=== PATIENT | female | born 1980 | race Caucasian/White ===

== ENCOUNTER → 2018-05-14 | Outpatient (CLI) | payer OTHER ==
--- NOTE | 2018-05-14 17:14 | PCVCIMAG ---
APPROVED REPORT Study performed: 05/14/2018 15:24:04 EXAM: Comprehensive 2D, Doppler, and color-flow Echocardiogram Patient Location: Echo lab Status: routine BSA: 1.60 HR: 76 bpmBP: 110/60 mmHg Rhythm: LBBB Other Information Study Quality: Adequate Indications Left Bundle Branch Block 2D Dimensions IVSd: 5.51 (7-11mm)LVOT Diam: 17.34 (18-24mm) LVDd: 52.28 mm PWd: 4.72 (7-11mm)Ascending Ao: 20.98 (22-36mm) LVDs: 34.42 (25-40mm) Left Atrium: 32.39 (27-40mm) Aortic Root: 17.92 mm LV Single Plane 4CH: 56.94 % LV Single Plane 2CH: 60.36 % Biplane EF: 58.9 % Volumes Left Atrial Volume (Systole) Single Plane 4CH: 40.49 mLSingle Plane 2CH: 48.39 mL LA ESV Index: 29.00 mL/m2 Aortic Valve AoV Peak Sin.: 1.50 m/s AO Peak Gr.: 9.00 mmHgLVOT Max P.33 mmHg LVOT Max V: 1.15 m/s ANGELICA Vmax: 1.82 cm2 Mitral Valve E/A Ratio: 2.2 MV Decel. Time: 163.33 ms MV E Max Sin.: 1.05 m/s MV A Sin.: 0.48 m/s Tricuspid Valve TR Peak Sin.: 1.79 m/s TR Peak Gr.: 12.86 mmHg Left Ventricle The left ventricle is normal size. Discordant septal motion due to Left Bundle Branch Block. There is normal left ventricular wall thickness. Left ventricular systolic function is normal. The left ventricular ejection fraction is within the normal range. LVEF is 50%. The left ventricular diastolic function is normal. Right Ventricle The right ventricle is normal size. The right ventricular systolic function is normal. Atria The left atrium size is normal. The right atrium size is normal. Aortic Valve The aortic valve is normal in structure. No aortic regurgitation is present. There is no aortic valvular stenosis. Mitral Valve The mitral valve is normal in structure. There is no mitral valve regurgitation noted. No evidence of mitral valve stenosis. Tricuspid Valve The tricuspid valve is normal in structure. Trace tricuspid regurgitation. Pulmonic Valve The pulmonary valve is normal in structure. There is no pulmonic valvular regurgitation. Great Vessels The aortic root is normal in size. IVC is normal in size and collapses >50% with inspiration. Pericardium There is no pericardial effusion. <Conclusion> The left ventricle is normal size. Discordant septal motion due to Left Bundle Branch Block. LVEF is 50%. The left ventricular diastolic function is normal. The right ventricle is normal size. The left atrium size is normal. The aortic valve is normal in structure. There is no mitral valve regurgitation noted. Trace tricuspid regurgitation. The aortic root is normal in size. There is no pericardial effusion.
== END | disposition home or self-care (01) ==
LOC: PCVCIMAG 15:40
PROVIDERS: ATTEND Family Medicine
DX: I44.7 Left bundle-branch block, unspecified (principal)
CPT/HCPCS: 93306

== ENCOUNTER → 2018-05-23 | Outpatient (CLI) | payer OTHER ==
[~2018-05-23] MED LIST: REGADENOSON 0.4 MG/5 ML DISP.SYRIN. IV ONE
--- NOTE | 2018-05-23 19:15 | PCVCIMAG ---
APPROVED REPORT Imaging Protocol: Rest Tc-99m/Stress Tc-99m 1 day Study performed: 05/23/2018 14:01:53 Indication: Chest pain, Abnormal EKG, Abn Echo, New Onset LBBB Patient Location: Out-Patient Stress Nurse: Maddie Cardona RN RI Tech:Jessica Harris [facility] Ht: 5 ft 7 in Wt: 152 lbs BSA: 1.80 m2 HR: 79 bpm BP: 119/72 mmHg BMI: 23.8 Rhythm: SR, LBBB Medical History Medical History: LBBB Medications: ASA Allergies: PCN, MEPERIDINE Pretest Chest Pain Characteristics: No chest pain Exercise History: Physically active Resting Data Rest SPECT myocardial perfusion imaging was performed in supine position 45 minutes following the intravenous injection of 10.4 mCi of Tc-99m Sestamibi. Time of rest injection: 1315 Date: 05/23/2018 Administration Route: IV Administration Site: Right Hand Pharmacologic Stress Pharmacologic stress test was performed by injecting Regadenoson 0.4 mg IV push over 10-15 seconds immediately followed by the intravenous injection of 31.6 mCi of Tc-99m Sestamibi. Time of stress injection: 1445 Date: 05/23/2018 Administration Route: IV Administration Site: Right Hand Gated Stress SPECT was performed 45 minutes after stress injection. The images were gated to evaluate regional wall motion and calculate left ventricular ejection fraction. Stress Test Details Stress Test: Pharmacologic stress was paired with low level exercise. Reason for pharmacologic stress test: physical limitation. HRMax Heart Rate (APMHR): 182 bpm Resting HR: 79 bpmTarget HR (85% APMHR): 154 bpm Max HR Achieved: 155 bpm % of APMHR: 85 Recovery HR: 85 bpm BP Resting BP: 119/72 mmHg Recovery BP: 119/73 mmHg ECG Resting ECG: SR, LBBB Stress ECG: ST, LBBB Recovery ECG: SR, LBBB Clinical Reason for Termination: Completed protocol Stress Symptoms: Chest pressure, Abdominal discomfort, Headache, Nausea, Lightheaded Exercise duration: 4 min 00 sec Exercise capacity: 1.6 METs Symptoms resolved with caffeine. Stress ECG Conclusion non diagnostic due to LBBB Study Quality Study: Good Study Data Post stress, the left ventricular ejection was 62%.. SSS: 7 SRS: 6 SDS: 2 TID = 1.12. Perfusion There is a medium area of mildly reduced uptake in the mid and apical segment of the anteroseptal wall which is seen on the stress images and improves on the resting images. This may be related to paradoxical septal motion although ischemia is difficult to completely exclude. Wall Motion Paradoxical septal motion due to left bundle branch block. Nuclear Conclusion There is a medium area of mildly reduced uptake in the mid and apical segment of the anteroseptal wall which is seen on the stress images and improves on the resting images. This may be related to paradoxical septal motion although ischemia is difficult to completely exclude. Futher evaluation with coronary CTA may be helpful. No prior study available for comparison. Interpreted by: Dheeraj Arizmendi MD Electronically Approved: 05/23/2018 19:07:07 <Conclusion> non diagnostic due to LBBB
== END | disposition home or self-care (01) ==
LOC: PCVCIMAG 13:34
PROVIDERS: ATTEND Internal Medicine Cardiovascular Disease
DX: I44.7 Left bundle-branch block, unspecified (principal); R94.31 Abnormal electrocardiogram [ECG] [EKG]
CPT/HCPCS: 78452; 93017; A9500; J2785